=== PATIENT | female | born 1955 | race Caucasian/White ===

== ENCOUNTER 2017-09-26 11:43 | Emergency (ER) | payer OTHER | END 2017-09-26 11:50 | disposition left against medical advice (07) | LOC: CED 11:43 | DX: Z53.21 Procedure and treatment not carried out due to patient leaving prior to being seen by health care provider (principal) ==

== ENCOUNTER → 2018-03-18 | Day surgery (SDC) | payer OTHER ==
[~2018-03-18] MED LIST: LIDOCAINE 1% 300 MG/30 ML SDV ONE
== END | disposition home or self-care (01) ==
LOC: FIMAGING 07:11
PROVIDERS: ATTEND Surgery
PROC: 0HHT31Z Insertion of Radioactive Element into Right Breast, Percutaneous Approach (ICD-10-PCS; principal; 2018-03-18)
DX: N64.89 Other specified disorders of breast (principal)

== ENCOUNTER → 2018-10-02 | Outpatient (CLI) | payer OTHER | LOC: BRMIMAGING 09:18 | PROVIDERS: ATTEND Surgery | DX: D05.11 Intraductal carcinoma in situ of right breast (principal); Z80.3 Family history of malignant neoplasm of breast ==